=== PATIENT | female | born 1980 | race Two or more races ===

== ENCOUNTER 2017-07-23 16:17 | Emergency (ER) | payer OTHER ==
[~2017-07-23] VITALS: Ht 144.8 cm; Wt 44.5 kg
== END 2017-07-23 21:58 | disposition home or self-care (01) ==
LOC: ER 16:17
DX: N76.0 Acute vaginitis (principal)

== ENCOUNTER 2019-10-10 18:17 | Outpatient (CLI) | payer OTHER ==
[2019-11-07] MEDS ORDERED: AUGMENTIN125 MG/5 M (20:08)
== END 2019-10-10 19:00 | disposition home or self-care (01) ==
LOC: RAD 18:17
PROVIDERS: ATTEND General Practice
DX: R05 Cough (principal)

== ENCOUNTER → 2019-11-07 | Emergency (ER) | payer OTHER ==
[~2019-11-07] VITALS: Ht 147.3 cm; Wt 46.7 kg
[~2019-11-07] MED LIST: AUGMENTIN125 MG/5 M
== END | disposition home or self-care (01) ==
LOC: ER 19:51
DX: R50.9 Fever, unspecified (principal); A90 Dengue fever [classical dengue]

== ENCOUNTER 2019-11-09 18:33 | Outpatient (CLI) | payer OTHER | END 2019-11-09 18:49 | disposition home or self-care (01) | LOC: LAB 18:33 | DX: A92.8 Other specified mosquito-borne viral fevers (principal) ==

== ENCOUNTER 2019-11-09 22:06 | Emergency (ER) | payer OTHER ==
[~2019-11-09] VITALS: Ht 147.3 cm; Wt 46.7 kg
== END 2019-11-10 07:44 | disposition home or self-care (01) ==
LOC: ER 22:06
DX: A90 Dengue fever [classical dengue] (principal); D69.6 Thrombocytopenia, unspecified

== ENCOUNTER 2019-11-11 04:13 | Inpatient (IN) | payer OTHER ==
[~2019-11-11] VITALS: Ht 25.4 cm; Wt 4.0 kg
== END 2019-11-16 20:16 | disposition home or self-care (01) | DRG 866 ==
LOC: ER 04:13 → MEDJ 10:30
PROVIDERS: ADMIT Internal Medicine; ATTEND Internal Medicine
PROC: 8E0ZXY6 Isolation (ICD-10-PCS; principal; 2019-11-11)
PROC: 30233R1 Transfusion of Nonautologous Platelets into Peripheral Vein, Percutaneous Approach (ICD-10-PCS; 2019-11-14)
DX: A90 Dengue fever [classical dengue] (principal); E86.0 Dehydration; D69.6 Thrombocytopenia, unspecified; Z20.828 Contact with and (suspected) exposure to other viral communicable diseases

== ENCOUNTER 2020-05-07 10:42 | Outpatient (CLI) | payer OTHER | END 2020-05-07 10:58 | disposition home or self-care (01) | LOC: RX STUDY 10:42 | PROVIDERS: ATTEND Obstetrics & Gynecology | DX: N97.2 Female infertility of uterine origin (principal); D25.0 Submucous leiomyoma of uterus; N85.6 Intrauterine synechiae ==